=== PATIENT | female | born 1985 | race Caucasian/White ===

== ENCOUNTER 2018-01-13 07:15 | Emergency (ER) | payer BC, MEDICAID ==
[2018-01-13 07:29] VITALS: BP 140/85
[2018-01-13] MEDS ORDERED: Acetaminophen/HYDROcodone 325-5 MG Tab PO ONE (07:55)
[2018-01-13] MEDS ORDERED: Ondansetron 4 MG Tab.DIS PO ONE (07:55)
--- NOTE | 2018-01-13 08:19 | EDM.PDOC ---
<Wanda Nielsen - Last Filed: 01/13/18 08:14> ED HPI GENERAL MEDICAL PROBLEM - General Chief Complaint: ENT Problem Stated Complaint: EAR PAIN Time Seen by Provider: 01/13/18 07:42 Source of Information: Reports: Patient, Family History Limitations: Reports: No Limitations - History of Present Illness INITIAL COMMENTS - FREE TEXT/NARRATIVE: Patient is a 32-year-old female who presents today for left ear pain. She states this started on Wednesday with a lot of pressure in the ear. She was seen at the walk-in clinic on Wednesday and was told to take Sudafed. She states this has not helped and the pain has only gotten worse. She does states she has some pain and pressure in the right ear as well but minimal. She also reports nausea , cough, body aches, sore throat, headahce and loss of appetite. She reports a fever of 102-103 on Wednesday. She has been taking NyQuil and Mucinex DM with minimal relief. She states she is exhausted and even getting up to let the dogs out causes her shortness of breath and fatigue. She states all she has done for the past 3-4 days is sleep. She did not get her flu shot this year. She denies any known sick contacts. Left Ear Pain Score (Numeric/FACES): 10 - Related Data Allergies Allergy/AdvReac Type Severity Reaction Status Date / Time No Known Allergies Allergy Verified 01/13/18 07:29 Home Meds: Home Meds Acetaminophen/HYDROcodone [[place] 325-5 MG] 1 tab PO Q6H PRN #10 tablet 01/13/18 [Rx] FLUoxetine [PROzac] 20 mg PO DAILY 01/13/18 [History] Past Medical History Psychiatric History: Reports: Anxiety - Past Surgical History HEENT Surgical History: Reports: Adenoidectomy, Oral Surgery, Tonsillectomy Female Surgical History: Reports: Breast Reduction Social & Family History - Tobacco Use Smoking Status *Q: Never Smoker Month/Year Tobacco Last Used: 6 months ago - Caffeine Use Caffeine Use: Reports: Coffee - Recreational Drug Use Recreational Drug Use: No ED ROS ENT - Review of Systems Review Of Systems: See Below Constitutional: Reports: Fever, Chills, Malaise, Weakness, Fatigue, Decreased Appetite HEENT: Reports: Ear Pain (left greater then right), Rhinitis, Throat Pain. Denies: Ear Discharge, Eye Discharge, Eye Pain Respiratory: Reports: Shortness of Breath, Cough. Denies: Wheezing, Pleuritic Chest Pain Cardiovascular: Reports: No Symptoms GI/Abdominal: Reports: Decreased Appetite, Nausea, Vomiting. Denies: Abdominal Pain, Constipation, Diarrhea Musculoskeletal: Reports: Other (generalized body aches) Skin: Reports: No Symptoms Neurological: Reports: No Symptoms Psychiatric: Reports: No Symptoms ED EXAM, ENT - Physical Exam Exam: See Below Exam Limited By: No Limitations General Appearance: Alert, WD/WN, No Apparent Distress Eye Exam: Bilateral Eye: EOMI, PERRL Ears: Normal Canal, Hearing Grossly Normal, TM Erythema (right greater then left ), TM Fluid (bilateral). No: TM Bulging, TM Perforation Mouth/Throat: Normal Inspection, Normal Gums, Normal Lips, Normal Oropharynx, Normal Teeth Head: Atraumatic, Normocephalic Respiratory/Chest: No Respiratory Distress, Lungs Clear, Normal Breath Sounds Cardiovascular: Regular Rate, Rhythm, No Murmur Neurological: Alert, Oriented, CN II-XII Intact, Normal Cognition, Normal Gait Psychiatric: Normal Affect, Normal Mood Skin: Warm, Dry, Intact, Normal Color Course - Vital Signs Last Recorded V/S: Last Vital Signs Temp 98.6 F 01/13/18 07:25 Pulse 89 01/13/18 07:25 Resp 16 01/13/18 07:25 BP 140/85 01/13/18 07:25 Pulse Ox 99 01/13/18 07:25 - Orders/Labs/Meds Meds: Medications Discontinued Medications Generic Name Dose Route Start Last Admin Trade Name Freq PRN Reason Stop Dose Admin Hydrocodone Bitart/Acetaminophen 1 tab 01/13/18 07:55 01/13/18 08:16 Choc[place]ua 325-5 Mg PO 01/13/18 07:56 1 tab ONETIME ONE Administration Ondansetron HCl 4 mg 01/13/18 07:55 01/13/18 08:16 Zofran Odt PO 01/13/18 07:56 4 mg ONETIME ONE Administration Departure - Departure Disposition: Home, Self-Care 01 Clinical Impression: Viral upper respiratory infection - Discharge Information Prescriptions: Acetaminophen/HYDROcodone [[place] 325-5 MG] 1 tab PO Q6H PRN #10 tablet PRN Reason: Pain Instructions: Upper Respiratory Infection, Adult Referrals: Michaela Schaefer RESIN FILTERER [Primary Care Provider] - Forms: ED Department Discharge, ED Return to Work/School Form Additional Instructions: Rest, drink plenty of water to maintain hydration, vaporizer steam as needed, alternate Tylenol and ibuprofen as needed for mild to moderate discomfort or hydrocodone if needed for more severe pain. Do not drive or work when taking hydrocodone. Follow-up clinic if not much better within 3-4 days as expected. <Darien Ogden - Last Filed: 01/14/18 08:11> Course - Re-Assessments/Exams Free Text/Narrative Re-Assessment/Exam: 01/14/18 08:10 Initial hx and exam by EDGARD Veloz student. I have also taken a hx, examined patient. I agree with her hx and exam as documented. Departure - Departure Time of Disposition: 09:11 Condition: Fair
== END 2018-01-13 09:20 | disposition home or self-care (01) ==
LOC: JD.ED 07:15
DX: J06.9 Acute upper respiratory infection, unspecified (principal)
CPT/HCPCS: 87804; 99283; A9270

== ENCOUNTER 2019-10-20 06:59 | Day surgery (SDC) | payer BC ==
[~2019-10-20 06:59] MED LIST: Lidocaine 1%/Sod Bicarbonate in NS 8.4% 1 ML Syringe IDERM PRN; Sodium Chloride 0.9% 10 ML Syringe FLUSH PRN
[2019-10-20] MEDS ORDERED: Propofol 200 MG/20 ML SDV ONE ×2 (07:26→07:58)
[2019-10-20] MEDS ORDERED: fentaNYL 250 MCG/5 ML SDV ONE (07:27)
[2019-10-20] MEDS ORDERED: Rocuronium 100 MG/10 ML MDV ONE (07:27)
[2019-10-20] MEDS ORDERED: Midazolam 1 MG/ML 2 ML SDV ONE (07:27)
[2019-10-20] MEDS ORDERED: ceFAZolin 1 GM Vial ONE (07:28)
[2019-10-20] MEDS ORDERED: Lidocaine 1% 6 ML ONE (07:30)
[2019-10-20] MEDS ORDERED: fentaNYL 100 MCG/2 ML SDV IVPUSH PRN (07:37)
[2019-10-20] MEDS ORDERED: Ondansetron 4 MG/2 ML SDV IVPUSH PRN ×2 (07:37→09:33)
[2019-10-20] MEDS ORDERED: diphenhydrAMINE 50 MG/ML SDV IVPUSH PRN (07:37)
[2019-10-20] MEDS ORDERED: Methylene Blue 50 MG/10 ML Ampule ONE ×2 (07:38→08:04)
[2019-10-20] MEDS ORDERED: Bupivacaine 0.5% 30 ML SDV ONE (07:38)
[2019-10-20] MEDS ORDERED: Dextrose 5% in Water 100 ML ONE (07:38)
--- NOTE | 2019-10-20 07:39 | PCM.PREANE ---
Preanesthetic Assessment - Procedure Proposed Procedure: laparoscopy with chromotubation possible lysis of adhesions - Anesthesia/Transfusion/Family Hx Anesthesia History: No Prior Anesthesia Family History of Anesthesia Reaction: No Transfusion History: No Prior Transfusion(s) Intubation History: Unknown - Review of Systems General: No Symptoms Pulmonary: No Symptoms Cardiovascular: No Symptoms Gastrointestinal: No Symptoms Neurological: No Symptoms Other: Reports: Depression, Anxiety - Physical Assessment NPO Status Date: 10/19/19 NPO Status Time: 11:35 Height: 1.6 m Weight: 116.573 kg ASA Class: 3 Mental Status: Alert & Oriented x3 Airway Class: Mallampati = 1 Dentition: Reports: Normal Dentition Thyro-Mental Finger Breadths: 3 Mouth Opening Finger Breadths: 5 ROM/Head Extension: Full Lungs: Clear to Auscultation, Normal Respiratory Effort Cardiovascular: Regular Rate, Regular Rhythm - Lab Values: Laboratory Last Values Urine Color Light yellow (Yellow) 10/20/19 07:16 Urine Appearance Clear (Clear) 10/20/19 07:16 Urine pH 6.5 (5.0-8.0) 10/20/19 07:16 Ur Specific [place] > or = 1.030 (1.005-1.030) 10/20/19 07:16 Urine Protein Negative (Negative) 10/20/19 07:16 Urine Glucose (UA) Negative (Negative) 10/20/19 07:16 Urine Ketones Negative (Negative) 10/20/19 07:16 Urine Occult Blood Negative (Negative) 10/20/19 07:16 Urine Nitrite Negative (Negative) 10/20/19 07:16 Urine Bilirubin Negative (Negative) 10/20/19 07:16 Urine Urobilinogen 0.2 (0.2-1.0) 10/20/19 07:16 Ur Leukocyte Esterase Negative (Negative) 10/20/19 07:16 Urine HCG, Qual Negative (NEGATIVE) 10/20/19 07:16 - Allergies Allergies/Adverse Reactions: Allergies Allergy/AdvReac Type Severity Reaction Status Date / Time garlic Allergy anaphalatic Verified 10/19/19 15:55 rachel Allergy anaphalatic Verified 10/19/19 15:55 shock Penicillins Allergy anaphalatic Verified 10/19/19 15:55 - Blood Blood Available: No - Acknowledgements Anesthesia Type Planned: General Anesthesia Pt an Appropriate Candidate for the Planned Anesthesia: Yes Alternatives and Risks of Anesthesia Discussed w Pt/Guardian: Yes Pt/Guardian Understands and Agrees with Anesthesia Plan: Yes Additional Comments: surgeon ordering test dose of ancef. questioned this due to family history of analphylatic reation PreAnesthesia Questionnaire HEENT History: Reports: None Cardiovascular History: Reports: None Respiratory History: Reports: Other (See Below) Other Respiratory History: SNORING Gastrointestinal History: Reports: Other (See Below) Other Gastrointestinal History: ELEVATED ALT Genitourinary History: Reports: None TECHNICAL DOCUMENT WRITER History: Reports: Other (See Below) Other OB/BYN History: occlusion of fallopion tube, menorrhagia, ovarian cyst, Musculoskeletal History: Reports: Back Pain, Chronic Neurological History: Reports: Migraines Psychiatric History: Reports: Anxiety, Depression Endocrine/Metabolic History: Reports: Obesity/BMI 30+ Hematologic History: Reports: None Immunologic History: Reports: None Oncologic (Cancer) History: Reports: None Dermatologic History: Reports: Other (See Below) Other Dermatologic History: cold sores, genital rash - Past Surgical History Head Surgeries/Procedures: Reports: None HEENT Surgical History: Reports: Adenoidectomy, Oral Surgery, Tonsillectomy Cardiovascular Surgical History: Reports: None Respiratory Surgical History: Reports: None GI Surgical History: Reports: None Female Surgical History: Reports: Breast Reconstruction Endocrine Surgical History: Reports: None Neurological Surgical History: Reports: None Musculoskeletal Surgical History: Reports: None Oncologic Surgical History: Reports: None - SUBSTANCE USE Smoking Status *Q: Former Smoker Recreational Drug Use History: No - HOME MEDS Home Medications: Home Meds Acetaminophen [Tylenol Extra Strength] 500 mg PO TID PRN 10/19/19 [History] Pnv No.95/Ferrous Fum/Folic AC [ Caplet] 1 tab PO DAILY 10/19/19 [ History] valACYclovir HCl [valACYclovir] 1,000 mg PO ASDIRECTED PRN 10/19/19 [History] - CURRENT (IN HOUSE) MEDS Current Meds: Current Medications Lactated Ringer's (Ringers, Lactated) 1,000 mls @ 125 mls/hr IV ASDIRECTED VEDA Stop: 10/20/19 23:00 Lidocaine/Sodium Bicarbonate (Buffered Lidocaine 1% In Ns 8.4%) 0.25 ml IDERM ONETIME PRN PRN Reason: Prior to IV Start Stop: 10/20/19 18:00 Sodium Chloride (Saline Flush) 10 ml FLUSH ASDIRECTED PRN PRN Reason: Keep Vein Open Stop: 10/20/19 18:00 Discontinued Medications Cefazolin Sodium (Ancef) Confirm Administered Dose 2 gm .ROUTE .STK-MED ONE Stop: 10/20/19 07:29 Fentanyl (Sublimaze) Confirm Administered Dose 250 mcg .ROUTE .STK-MED ONE Stop: 10/20/19 07:28 Lidocaine HCl (Xylocaine-Mpf 1%) Confirm Administered Dose 6 mls @ as directed .ROUTE .STK-MED ONE Stop: 10/20/19 07:31 Midazolam HCl (Versed 1 Mg/Ml) Confirm Administered Dose 2 mg .ROUTE .STK-MED ONE Stop: 10/20/19 07:28 Propofol (Diprivan 20 Ml) Confirm Administered Dose 400 mg .ROUTE .STK-MED ONE Stop: 10/20/19 07:27 Rocuronium [place] (Zemuron) Confirm Administered Dose 100 mg .ROUTE .STK-MED ONE Stop: 10/20/19 07:28
[2019-10-20] MEDS: Lactated Ringers 1,000 ML IV SCH ×2 (07:40→11:33)
[2019-10-20] MEDS ORDERED: Dexamethasone 4 MG/ML 5 ML MDV ONE (08:14)
[2019-10-20] MEDS ORDERED: Ondansetron 4 MG/2 ML SDV ONE (08:14)
[2019-10-20] MEDS ORDERED: Ketorolac 30 MG/ML SDV ONE (08:14)
[2019-10-20] MEDS ORDERED: HYDROmorphone 0.5 MG/0.5 ML Syringe ONE (08:18)
[2019-10-20] MEDS ORDERED: Neostigmine Methylsulfate 1 MG/ML 5 ML Syringe ONE (08:26)
[2019-10-20] MEDS ORDERED: Ketamine 500 mg/10 ML MDV ONE (08:28)
[2019-10-20] MEDS ORDERED: Albuterol 6.7 GM Inhaler INH ONE (09:30)
[2019-10-20] MEDS ORDERED: Ibuprofen 600 MG Tab PO PRN ×2 (09:33→14:15)
--- NOTE | 2019-10-20 09:39 | PCM.OPNOTE ---
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 Anterior and posterior sections within normal limits with exception of there appears to be an inclusion cyst posteriorly. The fallopian tubes are bilaterally phimosed with no spillage of dye initially seen. Ovaries appeared active with a corpus luteum seen on the right ovary. Again in case both fallopian tubes were opened with the mari-fimbria. Noted from both fallopian tubes at that time. Pre Op Diagnosis: 1. Bilaterally, distally obstructed fallopian tubes. 2. 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 Fluid Replacement, Intraop: 1,200 Output, Urine Amount: 200 EBL in mLs: 10 Drain/Tube Comments:: Indwelling catheter during surgery only. Complications: None Condition: Good Free Text/Narrative:: Surgery duration: one hour and 3 minutes. Procedure: The patient was taken to the operating room and placed in supine position on the operative table. She had sequential compression stockings in place for DVT prophylaxis and had been given 2 g of Ancef IV for infection prophylaxis. She was administered general endotracheal anesthesia. After administration of anesthesia the patient was placed in dorsal lithotomy position and prepped and draped in usual fashion. An indwelling bladder catheter was placed as was a uterine manipulator. It should be noted the uterus sounded to 8 cm and was noted to be anterior and mid position. Infraumbilical incision site and suprapubic site were then infiltrated with approximately 3-4 mL of Marcaine 0.5%. 5 mm incisions were made in these areas and then bilateral lower abdominal quadrant areas. Verres needle was placed in the infraumbilical incision site and pneumoperitoneum was established was in 3.5 L of CO2. The laparoscopic sleeve was then placed as was the scope. Under direct visualization the suprapubic site was developed with a 5 mm port. Pelvis was evaluated with findings as above. Initial chromotubation showed no spillage of dye. Chromotubation was done and both fallopian tubes on be distally obstructed. Decision made to open these fallopian tubes using the Harmonic scalpel. Harmonic scalpel was introduced and used to approximately 5 mari-fimbria on each fallopian tube. This there is adequate spillage of methylene blue dye. At this point procedure was discontinued. The peritoneum was reversed. The lower sleeve and bilateral lower quadrant sleeves having been removed under direct visualization. The upper port was removed and the incisions were closed with single subcuticular interrupted suture of 3-0 Monocryl. The incisions were further approximated with Dermabond skin glue. The uterine manipulator and Reeves catheter removed. Patient was returned to the supine position and awakened from general endotracheal anesthesia. She left the operating room in good condition.
[2019-10-20] MEDS ORDERED: HYDROmorphone 0.5 MG/0.5 ML Syringe IVPUSH PRN (10:11)
--- NOTE | 2019-10-20 10:15 | PCM.POSTAN ---
POST ANESTHESIA ASSESSMENT - MENTAL STATUS Mental Status: Other (drowsy) - VITAL SIGNS Vital Signs: 0945 114/76, 97 spo2, 84, 26, 97.1 Last Vital Signs Temp 36.2 C 10/20/19 09:45 Pulse 87 10/20/19 07:20 Resp 16 10/20/19 10:00 BP 117/65 10/20/19 10:00 Pulse Ox 95 10/20/19 10:00 - RESPIRATORY Respiratory Status: Respiratory Rate WNL, Airway Patent, O2 Saturation Stable, Supplemental Oxygen - CARDIOVASCULAR CV Status: Pulse Rate WNL, Blood Pressure Stable - GASTROINTESTINAL GI Status: No Symptoms - PAIN Pain Score: 0 - POST OP HYDRATION Hydration Status: Adequate & Stable
[2019-10-20] MEDS: Acetaminophen/oxyCODONE 325-5 MG Tab PO PRN ×2 (10:54→15:01)
[2019-10-20] MEDS ORDERED: hydrOXYzine HCl 50 MG Tab PO PRN (13:29)
--- NOTE | 2019-10-20 14:08 | PCM48HPAN ---
Post Anesthesia Note - EVALUATION WITHIN 48HRS OF ANESTHETIC Vital Signs in Normal Range: Yes Patient Participated in Evaluation: Yes Respiratory Function Stable: Yes (on o2 ) Airway Patent: Yes Cardiovascular Function Stable: Yes Hydration Status Stable: Yes Pain Control Satisfactory: Yes (pt resting quietly in bed ) Nausea and Vomiting Control Satisfactory: Yes Mental Status Recovered: Yes Vital Signs: Last Vital Signs Temp 36.3 C 10/20/19 13:06 Pulse 76 10/20/19 13:30 Resp 16 10/20/19 13:30 BP 114/75 10/20/19 13:30 Pulse Ox 92 L 10/20/19 13:30
[2019-10-20] MEDS ORDERED: Lactated Ringers 500 ML IV ONE (15:00)
[2019-10-20 19:25] VITALS: BP 116/75; PULSE 96
== END 2019-10-20 18:00 | disposition home or self-care (01) ==
LOC: JD.SDS 06:59 → JD.MS 16:33 → JD.SDS 18:00
PROVIDERS: ATTEND Obstetrics & Gynecology
DX: N97.1 Female infertility of tubal origin (principal); F41.9 Anxiety disorder, unspecified; F32.9 Major depressive disorder, single episode, unspecified; G43.909 Migraine, unspecified, not intractable, without status migrainosus; E66.01 Morbid (severe) obesity due to excess calories; Z68.42 Body mass index [BMI] 45.0-49.9, adult; Z87.891 Personal history of nicotine dependence; Z88.0 Allergy status to penicillin; Z91.018 Allergy to other foods
CPT/HCPCS: 36415; 58672; 81001; 81025; 85025; A9270; J0690; J1100; J1170; J1885; J2001; J2250; J2405; J2704; J2710; J3010; J3490; J7060; J7120

== ENCOUNTER 2020-05-04 11:39 | Emergency (ER) | payer OTHER ==
[2020-05-04 12:43] VITALS: BP 132/87; PULSE 98
--- NOTE | 2020-05-04 13:35 | CR ---
Chest: Portable view of the chest was obtained. Comparison: Prior chest x-ray of 06/20/16. Heart size and mediastinum are normal. Lungs are clear with no acute parenchymal change. Bony structures are unremarkable. Impression: 1. Nothing acute is appreciated on portable chest x-ray. Diagnostic code #1 This report was dictated in MDT
--- NOTE | 2020-05-04 13:44 | EDM.PDOC ---
ED HPI GENERAL MEDICAL PROBLEM - General Chief Complaint: Respiratory Problem Stated Complaint: SOB AND FEVER SPOUSE IS COVID + Time Seen by Provider: 05/04/20 12:50 Source of Information: Reports: Patient History Limitations: Reports: No Limitations - History of Present Illness INITIAL COMMENTS - FREE TEXT/NARRATIVE: Patient is a 34-year-old female who presents to the emergency department with complaints of cough, shortness of breath, chest tightness, and fever that started last night. She complains of feeling she has "razor blades" in her chest when she coughs. Patient verbalizes that her is COVID positive. She was tested 2 days ago for COVID, however has not received results thus far. Her just received his results today. She denies any chronic medical conditions. She has been using Tylenol as needed for fever and discomfort. Headache Pain Score (Numeric/FACES): 10 - Related Data Allergies Allergy/AdvReac Type Severity Reaction Status Date / Time garlic Allergy Anaphylactic Verified 05/04/20 12:44 Shock rachel Allergy Anaphylactic Verified 05/04/20 12:44 Shock Penicillins Allergy Anaphylactic Verified 05/04/20 12:44 Shock Home Meds: Home Meds ClomiPHENE [ClomiPHENE Citrate] 150 mg PO DAILY 05/04/20 [History] Progesterone, Micronized [Progesterone] 100 mg PO BID 05/04/20 [History] Past Medical History HEENT History: Reports: None Cardiovascular History: Reports: None Respiratory History: Reports: Other (See Below) Other Respiratory History: SNORING Gastrointestinal History: Reports: Other (See Below) Other Gastrointestinal History: ELEVATED ALT Genitourinary History: Reports: None FIELD SCOUT History: Reports: Other (See Below) Other FIELD SCOUT History: occlusion of fallopion tube, menorrhagia, ovarian cyst, , fallopian tube opening Musculoskeletal History: Reports: Back Pain, Chronic Neurological History: Reports: Migraines Psychiatric History: Reports: Anxiety, Depression Endocrine/Metabolic History: Reports: Obesity/BMI 30+ Hematologic History: Reports: None Immunologic History: Reports: None Oncologic (Cancer) History: Reports: None Dermatologic History: Reports: Other (See Below) Other Dermatologic History: cold sores, genital rash - Past Surgical History Head Surgeries/Procedures: Reports: None HEENT Surgical History: Reports: Adenoidectomy, Oral Surgery, Tonsillectomy Cardiovascular Surgical History: Reports: None Respiratory Surgical History: Reports: None GI Surgical History: Reports: None Female Surgical History: Reports: Breast Reconstruction Endocrine Surgical History: Reports: None Neurological Surgical History: Reports: None Musculoskeletal Surgical History: Reports: None Oncologic Surgical History: Reports: None Social & Family History - Tobacco Use Smoking Status *Q: Former Smoker Used Tobacco, but Quit: Yes Month/Year Tobacco Last Used: 2016 - Caffeine Use Caffeine Use: Reports: Coffee - Recreational Drug Use Recreational Drug Use: No ED ROS GENERAL - Review of Systems Review Of Systems: See Below Constitutional: Reports: Fever, Chills, Fatigue, Decreased Appetite HEENT: Reports: No Symptoms. Denies: Ear Pain, Throat Pain Respiratory: Reports: Shortness of Breath, Cough. Denies: Wheezing, Sputum Cardiovascular: Reports: No Symptoms Endocrine: Reports: No Symptoms GI/Abdominal: Reports: No Symptoms. Denies: Abdominal Pain, Diarrhea, Nausea, Vomiting : Reports: No Symptoms Musculoskeletal: Reports: No Symptoms Skin: Reports: No Symptoms Neurological: Reports: No Symptoms. Denies: Confusion, Dizziness, Headache Psychiatric: Reports: No Symptoms Hematologic/Lymphatic: Reports: No Symptoms Immunologic: Reports: No Symptoms ED EXAM, GENERAL - Physical Exam Exam: See Below General Appearance: Alert, WD/WN, No Apparent Distress Respiratory/Chest: No Respiratory Distress, Lungs Clear, Normal Breath Sounds, No Accessory Muscle Use, Chest Non-Tender Cardiovascular: Normal Peripheral Pulses, Regular Rate, Rhythm, No Edema, No Gallop, No JVD, No Murmur, No Rub Neurological: Alert, Oriented, CN II-XII Intact, Normal Cognition, Normal Gait, Normal Reflexes, No Motor/Sensory Deficits Psychiatric: Normal Affect, Normal Mood Skin Exam: Warm, Dry, Intact, Normal Color, No Rash Course - Vital Signs Last Recorded V/S: Last Vital Signs Temp 97.5 F 05/04/20 12:40 Pulse 98 05/04/20 12:40 Resp 17 05/04/20 12:40 BP 132/87 05/04/20 12:40 Pulse Ox 99 05/04/20 12:40 - Re-Assessments/Exams Free Text/Narrative Re-Assessment/Exam: 05/04/20 13:43 Patient is a 34-year-old female who presents with complaints of fever, cough, and shortness of breath that began last night. Her is COVID positive. She has been tested for COVID at [facility], however her results would not be available till tomorrow. Oxygen saturation has been 99 to 100% on triage and throughout her stay in ER. She is not tachycardic or tachypneic. Chest x-ray was completed and was found to be normal. Lung sounds are clear. Recommend the patient go home and continue to self isolate and wait for her results on her COVID test. Departure - Departure Time of Disposition: 13:53 Disposition: Home, Self-Care 01 Condition: Good Clinical Impression: Viral respiratory illness - Discharge Information *PRESCRIPTION DRUG MONITORING PROGRAM REVIEWED*: No *COPY OF PRESCRIPTION DRUG MONITORING REPORT IN PATIENT [place]: No Instructions: Viral Respiratory Infection, [id number] Referrals: PCP,None [Primary Care Provider] - Forms: ED Department Discharge Additional Instructions: You were seen in the emergency department today for fever, cough, and shortness of breath that started last night. He verbalizes your 's COVID positive. Your test results are still pending. We did call [facility] and they stated they should be available tomorrow. Chest x-ray was done and found to be normal. Your oxygen saturation is 99 to 100% which is excellent. Recommend that you go home and continue to self isolate. Ensure you are taking an adequate amount of fluid. You may continue to use Tylenol as needed for fever or discomfort. For cough, you may use [id number] Robitussin-DM as needed. Return to the ER for significant shortness of breath or any other worsening symptoms of concern. Sepsis Event Note (ED) - Evaluation Sepsis Screening Result: No Definite Risk - Focused Exam Vital Signs: Vital Signs Temp Pulse Resp BP Pulse Ox 05/04/20 12:40 97.5 F 98 17 132/87 99
== END 2020-05-04 14:15 | disposition home or self-care (01) ==
LOC: JD.ED 11:39
DX: B34.9 Viral infection, unspecified (principal); E66.9 Obesity, unspecified; Z68.41 Body mass index [BMI] 40.0-44.9, adult; Z91.018 Allergy to other foods; Z88.0 Allergy status to penicillin; Z87.891 Personal history of nicotine dependence
CPT/HCPCS: 71045; 71045-26; 99282; 99284-25

== ENCOUNTER 2021-06-11 06:27 | Day surgery (SDC) | payer OTHER ==
[~2021-06-11 06:27] MED LIST changes: -Lidocaine 1%/Sod Bicarbonate in NS 8.4% 1 ML Syringe IDERM PRN
[2021-06-11] MEDS ORDERED: Dextrose 5% in Water 100 ML ONE (06:35)
[2021-06-11] MEDS: Lidocaine 1%/Sod Bicarbonate in NS 8.4% 1 ML Syringe IDERM PRN (06:40)
[2021-06-11] MEDS: Lactated Ringers 1,000 ML IV SCH (06:40)
[2021-06-11] MEDS ORDERED: Propofol 200 MG/20 ML SDV ONE (06:44)
[2021-06-11] MEDS ORDERED: Lidocaine 1% 4 ML ONE (06:44)
[2021-06-11] MEDS ORDERED: Ondansetron 4 MG/2 ML SDV ONE (06:44)
[2021-06-11] MEDS ORDERED: Rocuronium 50 MG/5 ML Vial ONE (06:44)
[2021-06-11] MEDS ORDERED: Midazolam 1 MG/ML 2 ML SDV ONE (06:45)
[2021-06-11] MEDS ORDERED: fentaNYL 250 MCG/5 ML SDV ONE (06:45)
--- NOTE | 2021-06-11 07:03 | PCM.PREANE ---
Preanesthetic Assessment - Procedure Proposed Procedure: dilation and currettage hysterscopy diag lap - Anesthesia/Transfusion/Family Hx Anesthesia History: Prior Anesthesia Without Reaction Family History of Anesthesia Reaction: No Transfusion History: No Prior Transfusion(s) Intubation History: Unknown - Review of Systems General: No Symptoms Pulmonary: No Symptoms Cardiovascular: No Symptoms Gastrointestinal: No Symptoms Neurological: No Symptoms Other: Reports: Thyroid Problems - Physical Assessment NPO Status Date: 06/10/21 NPO Status Time: 19:30 Vital Signs: 121/75 87 97% 97.4 14 Height: 5 ft 4 in Weight: 119 kg ASA Class: 3 Mental Status: Alert & Oriented x3 Airway Class: Mallampati = 1 Dentition: Reports: Normal Dentition (has braces) Thyro-Mental Finger Breadths: 3 Mouth Opening Finger Breadths: 3 ROM/Head Extension: Full Lungs: Clear to Auscultation, Normal Respiratory Effort Cardiovascular: Regular Rate, Regular Rhythm - Allergies Allergies/Adverse Reactions: Allergies Allergy/AdvReac Type Severity Reaction Status Date / Time garlic Allergy Anaphylactic Verified 06/10/21 12:28 Shock rachel Allergy Anaphylactic Verified 06/10/21 12:28 Shock Penicillins Allergy Anaphylactic Verified 06/10/21 12:28 Shock - Blood Blood Available: No - Acknowledgements Anesthesia Type Planned: General Anesthesia Pt an Appropriate Candidate for the Planned Anesthesia: Yes Alternatives and Risks of Anesthesia Discussed w Pt/Guardian: Yes Pt/Guardian Understands and Agrees with Anesthesia Plan: Yes PreAnesthesia Questionnaire HEENT History: Reports: None Cardiovascular History: Reports: None Respiratory History: Reports: Other (See Below) Other Respiratory History: SNORING Gastrointestinal History: Reports: Other (See Below) Other Gastrointestinal History: ELEVATED ALT Genitourinary History: Reports: None LEARNING AND DEVELOPMENT ADMINISTRATOR History: Reports: Other (See Below) Other OB/BYN History: occlusion of fallopion tube, menorrhagia, ovarian cyst, , fallopian tube opening Musculoskeletal History: Reports: Back Pain, Chronic (no problems now) Neurological History: Reports: Migraines Psychiatric History: Reports: Anxiety, Depression Endocrine/Metabolic History: Reports: Obesity/BMI 30+ Hematologic History: Reports: None Immunologic History: Reports: None Oncologic (Cancer) History: Reports: None Dermatologic History: Reports: Other (See Below) Other Dermatologic History: cold sores, genital rash - Infectious Disease History Infectious Disease History: Reports: None - Past Surgical History Head Surgeries/Procedures: Reports: None HEENT Surgical History: Reports: Adenoidectomy, Oral Surgery, Tonsillectomy Cardiovascular Surgical History: Reports: None Respiratory Surgical History: Reports: None GI Surgical History: Reports: None Female Surgical History: Reports: Breast Reconstruction, Breast Reduction, Other (See Below) Other Female Surgeries/Procedures: laparoscopy with fimbrioplasty Endocrine Surgical History: Reports: None Neurological Surgical History: Reports: None Musculoskeletal Surgical History: Reports: None Oncologic Surgical History: Reports: None Dermatological Surgical History: Reports: None - SUBSTANCE USE Tobacco Use Status *Q: Former Tobacco User Second Hand Smoke Exposure: No Days Per Week of Alcohol Use: 1 Recreational Drug Use History: No - HOME MEDS Home Medications: Home Meds Acetaminophen [Tylenol Extra Strength] 500 mg PO TID PRN 06/10/21 [History] Levothyroxine Sodium [Levothyroxine] 75 mcg PO DAILY 06/10/21 [History] Vits #93/Iron Fum/FA [ Formula Tablet] 1 tab PO DAILY 06/10/21 [History] Somatropin [Omnitrope] 1 dose IM BEDTIME 06/10/21 [History] valACYclovir HCl [valACYclovir] 1,000 mg PO ASDIRECTED PRN 06/10/21 [History] - CURRENT (IN HOUSE) MEDS Current Meds: Current Medications Lactated Ringer's (Ringers, Lactated) 1,000 mls @ 125 mls/hr IV ASDIRECTED VEDA Stop: 06/11/21 23:00 Lidocaine/Sodium Bicarbonate (Lidocaine 1%/Sod Bicarbonate In Ns 8.4% 1 Ml Syringe) 0.25 ml IDERM ONETIME PRN PRN Reason: Prior to IV Start Stop: 06/11/21 18:00 Sodium Chloride (Sodium Chloride 0.9% 10 Ml Syringe) 10 ml FLUSH ASDIRECTED PRN PRN Reason: Keep Vein Open Stop: 06/11/21 18:00 Discontinued Medications Bupivacaine HCl (Bupivacaine 0.5% 30 Ml Sdv) Confirm Administered Dose 30 ml .ROUTE .STK-MED ONE Stop: 06/11/21 06:36 Fentanyl (Fentanyl 250 Mcg/5 Ml Sdv) Confirm Administered Dose 250 mcg .ROUTE .STK-MED ONE Stop: 06/11/21 06:46 Dextrose/Water (Dextrose 5% In Water) Confirm Administered Dose 100 mls @ as directed .ROUTE .ST-MED ONE Stop: 06/11/21 06:36 Lidocaine HCl (Xylocaine-Mpf 1%) Confirm Administered Dose 4 mls @ as directed .ROUTE .ST-MED ONE Stop: 06/11/21 06:45 Methylene Blue (Methylene Blue 50 Mg/10 Ml Ampule) Confirm Administered Dose 50 mg .ROUTE .[facility]-MED ONE Stop: 06/11/21 06:36 Midazolam HCl (Midazolam 1 Mg/Ml 2 Ml Sdv) Confirm Administered Dose 2 mg .ROUTE .ST-MED ONE Stop: 06/11/21 06:46 Ondansetron HCl (Ondansetron 4 Mg/2 Ml Sdv) Confirm Administered Dose 4 mg .ROUTE .ST-MED ONE Stop: 06/11/21 06:45 Propofol (Propofol 200 Mg/20 Ml Sdv) Confirm Administered Dose 200 mg .ROUTE .[facility]-MED ONE Stop: 06/11/21 06:45 Rocuronium [place] (Rocuronium 50 Mg/5 Ml Vial) Confirm Administered Dose 50 mg .ROUTE .ST-MED ONE Stop: 06/11/21 06:45
[2021-06-11] MEDS ORDERED: ceFAZolin 1 GM Vial ONE (07:05)
[2021-06-11] MEDS ORDERED: Dexamethasone 4 MG/ML 5 ML MDV ONE (07:37)
[2021-06-11] MEDS ORDERED: Lactated Ringers 1,000 ML ONE (07:43)
[2021-06-11] MEDS ORDERED: Methylene Blue 50 MG/10 ML Ampule ONE (07:45)
[2021-06-11] MEDS ORDERED: Ketamine 500 mg/10 ML MDV ONE (07:47)
[2021-06-11] MEDS ORDERED: HYDROmorphone 0.5 MG/0.5 ML Syringe ONE (07:51)
[2021-06-11] MEDS: Bupivacaine 0.5% 30 ML SDV ONE (08:03)
[2021-06-11] MEDS: Methylene Blue 50 MG/10 ML Ampule ONE (08:10)
[2021-06-11] MEDS ORDERED: Ketorolac 30 MG/ML SDV ONE (08:13)
[2021-06-11] MEDS ORDERED: Ondansetron 4 MG/2 ML SDV IVPUSH PRN ×2 (08:40→08:45)
[2021-06-11] MEDS ORDERED: HYDROmorphone 0.5 MG/0.5 ML Syringe IVPUSH PRN (08:45)
--- NOTE | 2021-06-11 08:47 | PCM.POSTAN ---
POST ANESTHESIA ASSESSMENT - MENTAL STATUS Mental Status: Alert, Oriented - VITAL SIGNS Vital Signs: Last Vital Signs Temp 97.4 F 06/11/21 06:30 Pulse 87 06/11/21 06:30 Resp 14 06/11/21 06:30 BP 121/75 06/11/21 06:30 Pulse Ox 97 06/11/21 06:30 0840 124/76 93% 91 20 97.1 - RESPIRATORY Respiratory Status: Respiratory Rate WNL, Airway Patent, O2 Saturation Stable, Supplemental Oxygen - CARDIOVASCULAR CV Status: Pulse Rate WNL, Blood Pressure Stable - GASTROINTESTINAL GI Status: No Symptoms - PAIN Pain Score: 3 (pressure abd) - POST OP HYDRATION Hydration Status: Adequate & Stable
--- NOTE | 2021-06-11 08:55 | PCM.OPNOTE ---
- General Post-Op/Procedure Note Date of Surgery/Procedure: 06/11/21 Operative Procedure(s): 1. Hysteroscopy. 2. Endometrial curettage. 3. Laparoscopy with chromotubation Findings: Patient found to have somewhat relaxed uterus and a grade 1 descensus position. Uterus is sounded to approximately 10 cm. Endometrial cavity had no significant pathology. Minimal tissue was removed on curettage. Tubal ostia were visualized. On laparoscopy patient was noted to have right fallopian tube to tally occluded at the distal end. Left fallopian tube with significant tubal scarring but with small patency. Scarring noted to the pelvic sidewall. Ovaries appear to be functional and normal. Anterior posterior cul-de-sac were without any significant pathology. The patient is noted to have a small, 1 cm nodule on the right posterior aspect of the uterus in the area of the uterosacral ligament. This appears to be a fibroid tumor. No significant abnormalities noted of the appendix is not visualized. Upper abdomen relatively unremarkable. Pre Op Diagnosis: 1. Secondary infertility. 2. Tubal scarring-infertility factor. 3. Obesity Post-Op Diagnosis: Same Anesthesia Technique: General ET Tube Other Anesthesia Type: Marcaine 0.5% - 5 cclocal Primary Surgeon: Dewey Ramos Secondary Surgeon: Andrew Belle Anesthesia Provider: Carlos Berry Parachute Rigger: Roslyn Bueno Reason Parachute Rigger Was Necessary: Retraction, assistance, patient safety, quality of care. Pathology: Endometrial curettings Fluid Replacement, Intraop: 1,300 EBL in mLs: 5 Complications: None Condition: Good Free Text/Narrative:: Surgery duration: 36 minutes Procedure: The patient was taken to the operating room and placed in supine po sition on the operative table. She had sequential compression stockings in place for DVT prophylaxis and had been given 2 g of Ancef IV for infection prophylaxis. She was administered general endotracheal anesthesia. After administration of anesthesia the patient was placed in dorsal lithotomy position and prepped and draped in usual fashion. Hysteroscopy was performed first. Weighted speculum is placed in the vagina. Exam under anesthesia had been done prior to the prep. The cervix was noted to be in a grade 1 descensus position. It appeared multiparous. The cervix was grasped with a single-tooth tenaculum and dilated minimally and the uterus sounded to 10 cm. It was anterior in position. Cervix was dilated to allow access with a 5 mm 12 degrees hysteroscope. Normal saline was used for distending medium. The endometrial cavity was evaluated. Findings as above. No significant pathology was noted. Wispy endometrium was present. Tubal ostia were visualized and identified. The scope was removed and endometrial sampling was undertaken. Small amount of tissue was removed and sent for histologic evaluation.. Uterine manipulator with chromotubation apparatus was then placed. Laparoscopy was then performed. Infraumbilical incision site and suprapubic site were then infiltrated with approximately 3-4 mL of Marcaine 0.5%. 5 mm incisions were made in these areas. Verres needle was placed in the infraumbilical incision site and pneumoperitoneum was established was in 3 L of CO2. The laparoscopic sleeve was then placed as was the scope. Under direct visualization the suprapubic site was developed with a 5 mm port. The right ovary surgery appeared functional and normal as did the left. No abnormalities were noted. The right fallopian tube appeared to be completely occluded at the distal end. Chromotubation with methylene blue was performed. No spillage was noted from the right fallopian tube. Left fallopian tube had significant scarring at the fimbriated end but a small opening was noted which allowed methylene blue spillage. That fallopian tube was adhered somewhat to the ovary and to the pelvic sidewall. Anterior and posterior cul-de-sac were within normal limits. Patient did have what appeared to be a small 1 cm subserosal fibroid in the area of the insertion of the right uterosacral ligament measuring approximately 1 cm. Remainder of the abdomen and pelvis was unremarkable as was the upper abdomen. The laparoscopy was then discontinued. The lower sleeve was removed under direct visualization. Pneumoperitoneum was reversed and the umbilical port laparoscopic sleeve was removed. Both incisions were closed with a single suture of 3-0 Monocryl and further approximated with Dermabond skin glue. Patient was awakened in general endotracheal esthesia after the uterine manipulator was removed. She tolerated procedure well and left the operating room in satisfactory condition.
[2021-06-11] MEDS: fentaNYL 100 MCG/2 ML SDV IVPUSH PRN (09:04)
--- NOTE | 2021-06-11 09:55 | PCM48HPAN ---
Post Anesthesia Note - EVALUATION WITHIN 48HRS OF ANESTHETIC Vital Signs in Normal Range: Yes Patient Participated in Evaluation: Yes Respiratory Function Stable: Yes Airway Patent: Yes Cardiovascular Function Stable: Yes Hydration Status Stable: Yes Pain Control Satisfactory: Yes (still has some discomfort. Feels good overall.) Nausea and Vomiting Control Satisfactory: Yes Mental Status Recovered: Yes Vital Signs: Last Vital Signs Temp 98.2 F 06/11/21 09:40 Pulse 70 06/11/21 09:40 Resp 18 06/11/21 09:40 BP 124/68 06/11/21 09:40 Pulse Ox 94 L 06/11/21 09:40
[2021-06-11 12:02] VITALS: BP 116/69; PULSE 76
[2021-06-11] MEDS ORDERED: Ketorolac 30 MG/ML SDV IVPUSH SCH (14:30)
[2021-06-11] MEDS ORDERED: Ibuprofen 600 MG Tab PO PRN (20:00)
== END 2021-06-11 12:05 | disposition home or self-care (01) ==
LOC: JD.SDS 06:27
PROVIDERS: ATTEND Obstetrics & Gynecology
DX: N97.1 Female infertility of tubal origin (principal); N85.8 Other specified noninflammatory disorders of uterus; E66.01 Morbid (severe) obesity due to excess calories; L90.5 Scar conditions and fibrosis of skin; Z68.41 Body mass index [BMI] 40.0-44.9, adult; Z88.0 Allergy status to penicillin; Z88.8 Allergy status to other drugs, medicaments and biological substances; Z91.018 Allergy to other foods
CPT/HCPCS: 58350; 58558; J0690; J1100; J1885; J2250; J2405; J2704; J2710; J3010; J3490; J7120; 00952; J1170

== ENCOUNTER 2022-12-03 09:55 | Emergency (ER) | payer BC ==
[2022-12-03] MEDS ORDERED: Sodium Chloride 0.9% 10 ML Syringe FLUSH PRN (10:04)
[2022-12-03] MEDS ORDERED: INFUSION IV STA (10:33)
[2022-12-03] MEDS ORDERED: ALTEPLASE IV STA (10:33)
[2022-12-03 10:45] LABS: ESTIMATED GFR 113 mL/min (>60)
[2022-12-03] MEDS ORDERED: Alteplase 81 MG in Infusion 1 VIAL IV STA (10:45)
[2022-12-03] MEDS ORDERED: Sodium Chloride 0.9% 100 ML IV SCH (11:00)
[2022-12-03] MEDS ORDERED: fentaNYL 100 MCG/2 ML SDV IVPUSH ONE (11:34)
[2022-12-03] MEDS ORDERED: fentaNYL 100 MCG/2 ML SDV ONE (11:36)
[2022-12-03 12:04] VITALS: BP 149/101; PULSE 95
== END 2022-12-03 11:59 ==
LOC: JD.ED 09:55
DX: I63.49 Cerebral infarction due to embolism of other cerebral artery (principal); E66.9 Obesity, unspecified; Z68.41 Body mass index [BMI] 40.0-44.9, adult; Z88.1 Allergy status to other antibiotic agents; Z88.0 Allergy status to penicillin; Z91.018 Allergy to other foods
CPT/HCPCS: 36415; 70450; 80053; 80307; 82947; 84484; 84703; 85025; 85379; 85610; 85730; 86140; 93005; 96374; 96375; 99285; J2997; J3010; 93010

== ENCOUNTER 2023-07-27 09:41 | Emergency (ER) | payer BC ==
[2023-07-27] MEDS ORDERED: diphenhydrAMINE 50 MG/ML SDV IVPUSH ONE (10:19)
[2023-07-27] MEDS ORDERED: Famotidine 20 MG/2 ML SDV IVPUSH ONE (10:19)
[2023-07-27] MEDS ORDERED: Sodium Chloride 0.9% 10 ML Syringe FLUSH PRN (10:19)
[2023-07-27] MEDS ORDERED: Ondansetron 4 MG/2 ML SDV IVPUSH ONE (10:20)
[2023-07-27 13:18] VITALS: BP 139/91; PULSE 79
== END 2023-07-27 13:15 | disposition home or self-care (01) ==
LOC: JD.ED 09:41
DX: T78.40XA Allergy, unspecified, initial encounter (principal); E03.9 Hypothyroidism, unspecified; E66.9 Obesity, unspecified; Z68.41 Body mass index [BMI] 40.0-44.9, adult; Z79.899 Other long term (current) drug therapy; Z88.0 Allergy status to penicillin; Z91.018 Allergy to other foods; Z88.1 Allergy status to other antibiotic agents
CPT/HCPCS: 96374; 96375; 99283; J1200; J2405; J3490; 99282

== ENCOUNTER 2024-05-11 18:37 | Observation (INO) | payer BC ==
[2024-05-11 19:31] LABS: BASOPHILS ABSOLUTE AUTO 0.1 K/mm3 (0.0-0.2); BASOPHILS PERCENT AUTO 0.7 % (0.0-1.0); EOSINOPHILS ABSOLUTE AUTO 0.2 K/mm3 (0.0-0.4); EOSINOPHILS PERCENT AUTO 2.2 % (0.0-6.0); HEMATOCRIT 39.6 % (37.0-47.0); HEMOGLOBIN 13.2 gm/dl (12.0-16.0); IMMATURE GRAN ABSOLUTE AUTO 0.02 K/mm3 (0.00-0.05); IMMATURE GRAN PERCENT AUTO 0.2 % (0.0-0.4); LYMPHOCYTES ABSOLUTE AUTO 2.2 K/mm3 (1.0-4.8); LYMPHOCYTES PERCENT AUTO 24.1 % (24.0-44.0); MEAN CORPUSCULAR HEMOGLOBIN 28.4 pg (28.0-32.0); MEAN CORPUSCULAR HGB CONC 33.3 g/dl (32.0-36.0); MEAN CORPUSCULAR VOLUME 85.2 fl (83.0-99.0); MEAN PLATELET VOLUME 10.5 fl (9.4-12.3); MONOCYTES ABSOLUTE AUTO 0.8 K/mm3 (0.0-0.8); MONOCYTES PERCENT AUTO 8.5 % (0.0-8.0); NEUTROPHILS ABSOLUTE AUTO 5.8 K/mm3 (1.8-7.7); NEUTROPHILS PERCENT AUTO 64.3 % (41.0-71.0); PLATELET COUNT,PLT 278 K/mm3 (150-400); RED BLOOD CELL COUNT 4.65 M/mm3 (4.10-5.30); WHITE BLOOD CELL COUNT,WBC 9.03 K/mm3 (3.9-11.3)
[2024-05-11] MEDS: Morphine 2 MG/ML SYRINGE IVPUSH ONE (19:40)
[2024-05-11] MEDS: Famotidine 20 MG/2 ML SDV IVPUSH ONE (19:41)
[2024-05-11] MEDS: Sodium Chloride 0.9% 10 ML Syringe FLUSH ONE (19:41)
[2024-05-11] MEDS: Ondansetron 4 MG/2 ML SDV IVPUSH ONE (19:41)
[2024-05-11] MEDS: Sodium Chloride 0.9% 1,000 ML IV ONE (19:41)
[2024-05-11 19:46] LABS: A/G RATIO 1.3 (1-2); ALANINE AMINOTRANSFERASE,ALT 51 U/L (14-59); ALKALINE PHOSPHATASE 82 U/L (46-116); ASPARTATE AMNIOTRANSFERASE,AST 96 U/L (15-37); BILIRUBIN TOTAL 0.7 mg/dL (0.2-1.0); BLOOD UREA NITROGEN,BUN 14 mg/dL (7-18); BUN/CREATININE RATIO 17.5 (14-18); CALCIUM 9.3 mg/dL (8.5-10.1); CARBON DIOXIDE,CO2 26 mEq/L (21-32); CHLORIDE,CL 105 mEq/L (98-107); CREATININE 0.8 mg/dL (0.55-1.02); EST CRCL DRUG DOSING (CG) 81.53 mL/min; ESTIMATED GFR 96 mL/min (>60); GLUCOSE RANDOM 98 mg/dL (70-99); LACTIC ACID 0.6 mmol/L (0.4-2.0); LIPASE 34 U/L (16-77); MAGNESIUM 1.9 mg/dL (1.8-2.4); PROTEIN TOTAL,TP 7.2 g/dl (6.4-8.2); SODIUM,NA 140 mEq/L (136-145)
[2024-05-11 19:50] LABS: C-REACTIVE PROTEIN < 0.05 mg/dL (<0.30); TROPONIN I HIGH SENSITIVITY < 4 pg/mL (<=51)
[2024-05-11] MEDS: Iopamidol 755 Mg/ML 100 ML Bottle IVPUSH ONE (20:26)
[2024-05-11] MEDS ORDERED: Ondansetron 4 MG/2 ML SDV IVPUSH PRN (21:40)
[2024-05-11] MEDS ORDERED: Naloxone 0.4 MG/ML SDV IVPUSH PRN (21:40)
[2024-05-11 21:47] LABS: APPEARANCE,URINE CLEAR (Clear); BILIRUBIN,URINE NEGATIVE (Negative); COLOR,URINE YELLOW (Yellow); GLUCOSE,URINE NEGATIVE (Negative); KETONES,URINE 3+ (Negative); LEUKOCYTE ESTERASE,URINE NEGATIVE (Negative); NITRITE,URINE NEGATIVE (Negative); OCCULT BLOOD,URINE NEGATIVE (Negative); PROTEIN,URINE NEGATIVE (Negative); UROBILINOGEN,URINE 0.2 (0.2-1.0)
[2024-05-11] MEDS: Levofloxacin/Dextrose 5%-Water 500 MG in Premix Bag 1 BAG IV SCH (21:49)
[2024-05-11] MEDS: Morphine 2 MG/ML SYRINGE IVPUSH PRN (21:49)
[2024-05-11] MEDS: metroNIDAZOLE/Normal Saline 500 MG in Premix Bag 1 BAG IV SCH (22:51)
[2024-05-12] MEDS: Acetaminophen 325 MG Tab PO PRN (07:49)
[2024-05-12] MEDS: Lactated Ringers 1,000 ML IV SCH (09:05)
[2024-05-12] MEDS ORDERED: fentaNYL 250 MCG/5 ML SDV ONE (09:13)
[2024-05-12] MEDS ORDERED: Propofol 200 MG/20 ML SDV ONE (09:13)
[2024-05-12] MEDS ORDERED: Midazolam 1 MG/ML 2 ML SDV ONE (09:13)
[2024-05-12] MEDS ORDERED: Rocuronium 50 MG/5 ML Vial ONE (09:16)
[2024-05-12] MEDS ORDERED: Ondansetron 4 MG/2 ML SDV IVPUSH PRN ×2 (09:41→14:40)
[2024-05-12] MEDS ORDERED: fentaNYL 100 MCG/2 ML SDV IVPUSH PRN ×2 (09:41→14:40)
[2024-05-12] MEDS ORDERED: HYDROmorphone 0.5 MG/0.5 ML Syringe IVPUSH PRN (09:41)
[2024-05-12] MEDS ORDERED: Dexamethasone 4 MG/ML 5 ML MDV ONE (11:56)
[2024-05-12] MEDS ORDERED: Ondansetron 4 MG/2 ML SDV ONE (11:56)
[2024-05-12] MEDS ORDERED: fentaNYL 100 MCG/2 ML SDV ONE (12:26)
[2024-05-12] MEDS ORDERED: Lactated Ringers 1,000 ML ONE ×2 (12:54→13:13)
[2024-05-12] MEDS ORDERED: Bupivacaine 0.5% 30 ML SDV ONE (12:54)
[2024-05-12] MEDS ORDERED: EPINEPHrine 1 MG/ML SDV ONE (12:54)
[2024-05-12] MEDS ORDERED: Neostigmine Methylsulfate 10 MG/10 ML MDV ONE (12:55)
[2024-05-12] MEDS ORDERED: Ketorolac 15 MG/ML SDV ONE (12:59)
[2024-05-12] MEDS: HYDROmorphone 0.5 MG/0.5 ML Syringe IVPUSH PRN (15:27)
[2024-05-12] MEDS: oxyCODONE 5 MG Tab PO PRN (16:05)
[2024-05-12 17:23] VITALS: BP 131/70; PULSE 63
== END 2024-05-12 16:56 | disposition home or self-care (01) ==
LOC: JD.ED 18:37 → JD.MS 21:37
PROVIDERS: ADMIT Surgery; ATTEND Surgery
DX: K80.12 Calculus of gallbladder with acute and chronic cholecystitis without obstruction (principal); E03.9 Hypothyroidism, unspecified; F32.A Depression, unspecified; F41.9 Anxiety disorder, unspecified; E66.9 Obesity, unspecified; Z79.890 Hormone replacement therapy; Z79.899 Other long term (current) drug therapy; Z88.0 Allergy status to penicillin
CPT/HCPCS: 36415; 43235; 47562; 74177; 76705; 80053; 81003; 83605; 83690; 83735; 84484; 84703; 85025; 86140; 93005; 96361; 96365; 96366; 96367; 96375; 96376; 99285; A9270; G0378; J0171; J0665; J1100; J1170; J1836; J1885; J1956; J2250; J2270; J2405; J2704; J2710; J3010; J3490; J7030; J7120; Q9967; 00790; 93010

== ENCOUNTER 2025-06-30 23:03 | Emergency (ER) | payer BC ==
[2025-06-30] MEDS ORDERED: Sodium Chloride 0.9% 10 ML Syringe FLUSH PRN (23:27)
[2025-06-30 23:31] LABS: BASOPHILS ABSOLUTE AUTO 0.1 K/mm3 (0.0-0.2); BASOPHILS PERCENT AUTO 1.1 % (0.0-1.0); EOSINOPHILS ABSOLUTE AUTO 0.3 K/mm3 (0.0-0.4); EOSINOPHILS PERCENT AUTO 5.3 % (0.0-6.0); IMMATURE GRAN ABSOLUTE AUTO 0.01 K/mm3 (0.00-0.05); IMMATURE GRAN PERCENT AUTO 0.2 % (0.0-0.4); LYMPHOCYTES ABSOLUTE AUTO 2.3 K/mm3 (1.0-4.8); LYMPHOCYTES PERCENT AUTO 36.1 % (24.0-44.0); MEAN PLATELET VOLUME 10.3 fl (9.4-12.3); MONOCYTES ABSOLUTE AUTO 0.7 K/mm3 (0.0-0.8); MONOCYTES PERCENT AUTO 10.6 % (0.0-8.0); NEUTROPHILS ABSOLUTE AUTO 2.9 K/mm3 (1.8-7.7); NEUTROPHILS PERCENT AUTO 46.7 % (41.0-71.0); NRBC ABSOLUTE 0.00 (0.00-0.02); NRBC PERCENT 0.0 % (0.0-0.2); PLATELET COUNT,PLT 277 K/mm3 (150-400); RED BLOOD CELL COUNT 4.23 M/mm3 (4.10-5.30); WHITE BLOOD CELL COUNT,WBC 6.23 K/mm3 (3.9-11.3)
[2025-06-30 23:46] LABS: APPEARANCE,URINE TURBID (Clear); GLUCOSE,URINE NEGATIVE (Negative)
[2025-06-30 23:56] LABS: OCCULT BLOOD,URINE 3+ (Negative)
[2025-06-30 23:58] LABS: SQUAMOUS EPITHELIAL CELLS,UR 0-5 /hpf (0-5)
[2025-06-30 23:58] LABS: A/G RATIO 1.3 (1-2); ALANINE AMINOTRANSFERASE,ALT 29.0 U/L (14-59); ASPARTATE AMNIOTRANSFERASE,AST 22.0 U/L (15-37); BILIRUBIN TOTAL 0.4 mg/dL (0.2-1.0); BLOOD UREA NITROGEN,BUN 16.0 mg/dL (7-18); CARBON DIOXIDE,CO2 25.0 mEq/L (21-32); CHLORIDE,CL 105.0 mEq/L (98-107); CREATININE 0.8 mg/dL (0.55-1.02); EST CRCL DRUG DOSING (CG) 80.72 mL/min; ESTIMATED GFR 95.0 mL/min (>60); GLUCOSE RANDOM 105.0 mg/dL (70-99); POTASSIUM,K 3.6 mEq/L (3.5-5.1); PROTEIN TOTAL,TP 7.1 g/dl (6.4-8.2); SODIUM,NA 140.0 mEq/L (136-145)
[2025-07-01 00:37] LABS: TSH 4.626 uIU/mL (0.358-3.74)
[2025-07-01 00:53] LABS: T4 FREE 0.98 ng/dL (0.76-1.46)
[2025-07-01 03:16] VITALS: BP 114/74; PULSE 66
== END 2025-07-01 03:18 | disposition home or self-care (01) ==
LOC: JD.ED 23:03
DX: N92.0 Excessive and frequent menstruation with regular cycle (principal); R94.6 Abnormal results of thyroid function studies; E66.9 Obesity, unspecified; F17.200 Nicotine dependence, unspecified, uncomplicated; Z88.1 Allergy status to other antibiotic agents; Z88.0 Allergy status to penicillin; Z68.30 Body mass index [BMI] 30.0-30.9, adult
CPT/HCPCS: 36415; 76857; 80053; 81001; 84439; 84443; 84703; 85025; 86850; 86900; 86901; 99284; J7030